=== PATIENT | female | born 1990 | race Caucasian/White ===

== ENCOUNTER 2023-10-14 10:46 | Inpatient (IN) | payer OTHER ==
[2023-10-14] MEDS ORDERED: Sodium Chloride 0.9% 10 ML Syringe FLUSH PRN (11:26)
[2023-10-14] MEDS ORDERED: Ondansetron 4 MG/2 ML SDV IVPUSH PRN (11:26)
[2023-10-14] MEDS ORDERED: Nalbuphine 10 MG/ML Syringe IVPUSH PRN (11:26)
[2023-10-14] MEDS ORDERED: Calcium Carbonate 500 MG Tab.Chew PO PRN (11:26)
[2023-10-14 11:55] LABS: BASOPHILS ABSOLUTE AUTO 0.1 K/mm3 (0.0-0.2); BASOPHILS PERCENT AUTO 0.4 % (0.0-1.0); EOSINOPHILS PERCENT AUTO 0.1 % (0.0-6.0); HEMOGLOBIN 13.5 gm/dl (12.0-16.0); IMMATURE GRAN ABSOLUTE AUTO 0.09 K/mm3 (0.00-0.05); IMMATURE GRAN PERCENT AUTO 0.6 % (0.0-0.4); LYMPHOCYTES ABSOLUTE AUTO 1.3 K/mm3 (1.0-4.8); MEAN CORPUSCULAR HEMOGLOBIN 29.7 pg (28.0-32.0); MEAN CORPUSCULAR HGB CONC 33.8 g/dl (32.0-36.0); MEAN CORPUSCULAR VOLUME 88.1 fl (83.0-99.0); MEAN PLATELET VOLUME 12.7 fl (9.4-12.3); MONOCYTES ABSOLUTE AUTO 0.7 K/mm3 (0.0-0.8); MONOCYTES PERCENT AUTO 4.9 % (0.0-8.0); NEUTROPHILS ABSOLUTE AUTO 11.9 K/mm3 (1.8-7.7); PLATELET COUNT,PLT 161 K/mm3 (150-400); RED BLOOD CELL COUNT 4.54 M/mm3 (4.10-5.30); WHITE BLOOD CELL COUNT,WBC 14.01 K/mm3 (3.9-11.3)
[2023-10-14] MEDS: Ampicillin 2 GM in Sodium Chloride 0.9% 100 ML IV ONE (12:03)
[2023-10-14] MEDS: Lactated Ringers 1,000 ML IV SCH (12:03)
[2023-10-14] MEDS: Ampicillin 1 GM in Sodium Chloride 0.9% 100 ML IV SCH (16:11)
[2023-10-15] MEDS: Oxytocin/Lactated Ringers 30 UNIT/500 ML BAG IV SCH ×2 (03:30→04:26)
[2023-10-15] MEDS: Lidocaine 1% 50 ML MDV INJECT PRN (03:39)
[2023-10-15] MEDS ORDERED: Acetaminophen 325 MG Tab PO PRN (04:06)
[2023-10-15] MEDS: Methylergonovine 0.2 MG/1 ML Amp IM ONE (04:10)
[2023-10-15] MEDS: Benzocaine/Menthol 20%-0.5% Spray 78 GM Cannister TOP PRN (04:17)
[2023-10-15] MEDS: Ibuprofen 600 MG Tab PO SCH (08:20)
[2023-10-15] MEDS: Witch Hazel Medicated Pads 40/Jar TOP PRN (11:12)
[2023-10-15] MEDS: Docusate Sodium 100 MG Cap PO PRN (21:28)
[2023-10-15] MEDS ORDERED: Ondansetron 4 MG/2 ML SDV IVPUSH PRN (21:54)
== END 2023-10-16 17:00 | disposition home or self-care (01) | DRG 807 ==
LOC: JD.OBCHECK 10:46 → JD.OB 10:53 → JD.OBCHECK 11:27 → OBSVTOIN 10-15 03:29 → JD.OB 10-15 03:30
PROVIDERS: ADMIT Obstetrics & Gynecology; ATTEND Obstetrics & Gynecology
PROC: 10E0XZZ Delivery of Products of Conception, External Approach (ICD-10-PCS; principal; 2023-10-15)
PROC: 0KQM0ZZ Repair Perineum Muscle, Open Approach (ICD-10-PCS; 2023-10-15)
PROC: 10907ZC Drainage of Amniotic Fluid, Therapeutic from Products of Conception, Via Natural or Artificial Opening (ICD-10-PCS; 2023-10-15)
DX: O99.824 Streptococcus B carrier state complicating childbirth (principal); Z37.0 Single live birth; Z3A.40 40 weeks gestation of pregnancy; O48.0 Post-term pregnancy; O99.42 Diseases of the circulatory system complicating childbirth; I34.1 Nonrheumatic mitral (valve) prolapse; O70.1 Second degree perineal laceration during delivery
CPT/HCPCS: 36415; 51701; 59025; 59409; 85025; 86592; 86850; 86900; 86901; A9270-GY; J0290; J2001; J2210; J3490; J7120; J7999